=== PATIENT | female | born 1970 | race Caucasian/White ===

== ENCOUNTER 2017-02-22 09:36 | Emergency (ER) | payer OTHER ==
[~2017-02-22] VITALS: Ht 162.6 cm; Wt 82.7 kg
[~2017-02-22 09:36] MED LIST: ACYC400T2 PO; IBUP-1827 PO; LISI10TA PO
[2017-02-22 09:42] VITALS: BP 177/93; PULSE 89; RESP 22; O2SAT 100
--- NOTE | 2017-02-22 09:56 | ED.REPORT ---
HPI-Abd Pain F 40 and Over Date of Service Feb 22, 2017 ED Provider: Amlicar Hutchinson DO The pt is a 46 y/o female presenting to the ED complaining of abdominal pain onset 1700 yesterday. She describes the pain as getting progressively worse, beginning at her RLQ and radiating to her back, and becoming worse when she breathes. Denies fever, vomiting, diarrhea, hematuria, increased frequency, blood in stool, or vaginal discharge. Nursing Notes Stated Complaint: RIGHT SIDE PAIN Chief Complaint: Female Abdominal Pain Nursing Notes Reviewed: Yes Allergies: Coded Allergies: codeine (Verified Adverse Reaction, Severe, N/V, 05/29/09) Uncoded Allergies: Codeine (Adverse Reaction, Severe, N/V, 08/03/04) Scheduled Acyclovir (Acyclovir) 400 Mg Tablet 400 MG PO BID Levofloxacin (Levaquin) 500 Mg Tablet 500 MG PO DAILY Lisinopril (Lisinopril) 10 Mg Tablet 10 MG PO DAILY Metronidazole (Flagyl) 500 Mg Tablet 500 MG PO Q8H Scheduled PRN Docusate Sodium (Colace) 100 Mg Capsule 100 MG PO BID PRN PRN For Constipation Ibuprofen (Ibuprofen) 600 Mg Tablet 600 MG PO QID PRN PRN For Pain Tramadol (Tramadol) 50 Mg Tablet 50 MG PO Q4H PRN PRN For Pain General Time Seen by MD: 09:55 Chief Complaint Abdominal pain Hx Obtained From: Patient Arrived By: Walk-in Sudden in Onset?: Yes Onset Occurred: Yesterday Symptom Duration: Since onset Progression since Onset: Gradually worsening Recent Healthcare: No recent doctor visit, No recent hospitalization Similar Sx Previous: Yes Past Medical History Past Medical History None reported Past Surgical History Tubal ligation Ovarian cysts Social History Alcohol Use: "Social" Other Social History: Good social support Ambulatory Status Independent Review of Systems Constitutional: Denies: Fever GI: Reports: Abdominal pain, Denies: Bloody/tarry stool, Diarrhea, Vomiting Female: Denies: Hematuria, Urinary frequency, Vaginal discharge Complete sys rev & neg: except as marked. Physical Exam Vital Signs Vital Signs (First) Date Time Temp Pulse Resp B/P Pulse Ox O2 Delivery O2 Flow Rate FiO2 02/22/17 09:42 36.8 89 22 177/93 100 Room Air Initial VS: Reviewed Head / Eyes: Atraumatic, Normocephalic, PERRL ENT: Mucous membranes moist, Conjunctiva normal, No scleral icterus Neck: Supple, Non-tender, Full range of motion Extremities: Vascular intact, Neuro intact, No swelling, No tenderness Skin: Warm, Dry, No cyanosis Neurologic: Alert, Oriented, Nonfocal Psychiatric: Mood/affect normal, Behavior normal, Normal thought content General/Constitutional: Awake, Alert Respiratory / Chest: Atraumatic, Breath sounds NL, Breath sounds = bilat, No respiratory distress Cardiovascular: Heart rate NL, Regular rhythm, Heart sounds NL Abdomen: Soft RLQ pain w/ positive McBurneys sign Back: Atraumatic, Full range of motion Interpretation & Diagnostics Lab Results Interpretation Result Diagram: 02/22/17 1025 02/22/17 1025 Test 02/22/17 10:00 02/22/17 10:25 Hold Urine Received (Received) White Blood Count 8.6th/mm3 (3.8-10.1) Red Blood Count 4.75mil/mm3 (3.90-5.20) Hemoglobin 14.3g/dL (12.0-15.6) Hematocrit 42.3% (35.0-46.0) Mean Corpuscular Volume 89.1fL (81-100) Mean Corpuscular Hemoglobin 30.1pg (27.0-35.0) Mean Corpuscular Hemoglobin Concent 33.8% (32.0-37.0) Red Cell Distribution Width 13.6% (12.3-15.4) Platelet Count 212bil/L (150-400) Neutrophils (%) (Auto) 64.8% (40-74) Lymphocytes (%) (Auto) 24.4% (14-46) Monocytes (%) (Auto) 9.0% (4-12) Eosinophils (%) (Auto) 1.5% (0-5) Basophils (%) (Auto) 0.2% (0-3) Sodium Level 139mEq/L (134-144) Potassium Level 4.1mEq/L (3.5-5.2) Chloride Level 106mEq/L (97-108) Carbon Dioxide Level 21mmol/L (18-29) Blood Urea Nitrogen 15mg/dL (6-24) Creatinine 0.59mg/dL (0.57-1.00) Estimat Glomerular Filtration Rate 156mL/min (>59) Glucose Level 91mg/dL (60-99) Calcium Level 8.9mg/dL (8.5-10.1) Magnesium Level 2.2mg/dL (1.6-2.6) Total Bilirubin 0.6mg/dL (0.0-1.2) Aspartate Amino Transf (AST/SGOT) 17U/L (0-50) Alanine Aminotransferase (ALT/SGPT) 17U/L (0-32) Alkaline Phosphatase 62U/L (25-150) Total Protein 7.2g/dL (6.4-8.4) Albumin 4.2g/dL (3.4-5.0) Lipase 26U/L (13-60) Hold Lujan Top Tube Received (Received) CT Abd / Pelvis Interpretation IMPRESSION: 1. Fat stranding within the right hemiabdomen, adjacent to the ascending colon and inferior liver margin. Findings may indicate colitis versus hepatitis. Clinical correlation recommended. No abscess. 2. Appendix not seen. No evidence of appendicitis. 3. New sclerotic focus within the L4 vertebral body which could be further assessed with bone scan, if clinically indicated. 4. Multiple uterine fibroids. Dictated by: Deedee Banuelos M.D. on 02/22/2017 at 11:39 Approved by: Deedee Banuelos M.D. on 02/22/2017 at 11:45 Study type: Abdom CT oral contrast Interpretation / Wet Read by: Interpret - Radiologist Re-Eval/Medical Decision Med Decision/Clinical Course Likely infectious colitis, will plan to treat with antibiotics and pain management. Recommend close outpatient follow-up. Return precautions given. Re-Evaluation/Progress : Time of Eval: 12:26 Patient Status: Condition improved Re-Evaluation/Progress Note: Pt rechecked. Informed pt of plan for treatment. Pt understands and agrees with plan for treatment. F/U instructions and RTER warnings given. All questions addressed. Counseled Regarding: Diagnosis, Lab results, Need for follow-up, When/why to return to ED Discharge & Departure Primary Impression: Colitis Disposition: Home Discharge Condition All VS Reviewed: Yes Condition: Stable Additional Instructions: Thank for you entrusting us with your care today. You were diagnosed with colitis. Please take the antibiotics as prescribed and the Tramadal for the pain as needed. You can call Dr. Blum tomorrow for a follow up. Please return to the emergency department if you experience any new or worsening symptoms. I hope you feel better soon. Referrals: Jensen Blum MD (PCP) Scribe Attestation Portions of this note were transcribed by Leandro Torres. I, Dr. Hutchinson personally performed the history, physical exam and medical decision-making; I reviewed and confirmed the accuracy of the information in the transcribed note. Signed by : Liz Mckeon, 02/22/17 and 1258. copies to: Jensen Blum MD, Timothy S DO Feb 22, 2017 09:56 Leandro Torres Feb 22, 2017 12:30
[2017-02-22] MEDS ORDERED: 0.9% Sodium Chloride 1,000 ML IV ONE (10:09)
[2017-02-22] MEDS ORDERED: Ondansetron 2 mg/mL 2 mL Inj IVPUSH PRN (10:10)
[2017-02-22] MEDS ORDERED: Ketorolac 15 mg/mL Inj IVPUSH ONE (10:10)
[2017-02-22 10:37] LABS: BASOPHILS % (AUTO) 0.2 % (0-3); EOSINOPHILS % (AUTO) 1.5 % (0-5); Mean Corpuscular Hemoglobin 30.1 pg (27.0-35.0); Mean Corpuscular Volume 89.1 fL (81-100); NEUTROPHILS % (AUTO) 64.8 % (40-74); Platelet Count 212 bil/L (150-400)
[2017-02-22 11:05] LABS: Magnesium 2.2 mg/dL (1.6-2.6)
[2017-02-22 11:45] VITALS: BP 141/74; PULSE 65; RESP 20; O2SAT 96
--- NOTE | 2017-02-22 11:46 | DRSVH ---
PROCEDURE: CT ABDOMEN AND PELVIS WITH CONTRAST ([id number]) INDICATIONS: rlq pain TECHNIQUE: After the administration of intravenous contrast, 5 mm thick sections acquired from the diaphragm to the symphysis. 5 mm coronal and sagittal reformats were acquired. For radiation dose reduction, the following was used: automated exposure control, adjustment of mA and/or kV according to patient siz e. COMPARISON: [facility], CT, ABD/PELVIS W/CON (PNL), 10/25/2007, 17:15. [facility] , CT, ABDOMEN W&W/O CONTRAST, 01/11/2010, 14:15. FINDINGS: Image quality: Excellent. ABDOMEN: Lung bases: Lung bases are clear. Heart size is normal. Solid organs: Liver and spleen are normal in size and enhancement. Gallbladder is within normal guzmán its. Biliary system is non dilated. Pancreas enhances normally. No adrenal nodules. Kidneys demon strate normal size and enhancement, without hydronephrosis. Peritoneum and bowel: Bowel loops demonstrate normal wall thickness and caliber. No free fluid or a ir. There is new fat stranding within the subhepatic location and adjacent to the distal ascending c olon. Appendix not seen. No evidence of appendicitis. Nodes and vessels: No retroperitoneal or mesenteric adenopathy by size criteria. Aorta and inferior vena cava are normal in size. Miscellaneous: No ventral hernias. PELVIS: Genitourinary: Bladder wall thickness is normal. 56 mm diameter exophytic mass protrudes laterally from the right aspect of the uterus. Multiple smaller regions of nodular enhancement within the uteri ne parenchyma are present. Miscellaneous: No inguinal hernias or adenopathy. Bones: There is a 23 mm no sclerosis within the inferior L4 vertebral body, new since the prior exami nation. No vertebral body compression fractures. IMPRESSION: 1. Fat stranding within the right hemiabdomen, adjacent to the ascending colon and inferior liver mar gin. Findings may indicate colitis versus hepatitis. Clinical correlation recommended. No abscess. 2. Appendix not seen. No evidence of appendicitis. 3. New sclerotic focus within the L4 vertebral body which could be further assessed with bone scan, i f clinically indicated. 4. Multiple uterine fibroids. Dictated by: Deedee Banuelos M.D. on 02/22/2017 at 11:39 Approved by: Deedee Banuelos M.D. on 02/22/2017 at 11:45
[2017-02-22] MEDS ORDERED: TRAM50TA2 PO ×2 (12:48→13:27)
[2017-02-22] MEDS ORDERED: DOCU-41 PO ×2 (12:48→13:27)
[2017-02-22] MEDS ORDERED: METR500T PO ×2 (12:48→13:27)
[2017-02-22] MEDS ORDERED: LEVO500T16 PO ×2 (12:48→13:27)
[2017-02-22 13:04] VITALS: BP 120/69; PULSE 69; RESP 20; O2SAT 100
== END 2017-02-22 10:30 | disposition home or self-care (01) ==
LOC: SED 09:36
DX: K52.9 Noninfective gastroenteritis and colitis, unspecified (principal); Z79.899 Other long term (current) drug therapy; Z88.5 Allergy status to narcotic agent
CPT/HCPCS: 36415; 74177; 80053; 81025; 83690; 83735; 85025; 96361; 96374; 96375; 99285; J1885; J2270; J2405; J7030; Q9967

== ENCOUNTER 2017-02-23 14:39 | Emergency (ER) | payer OTHER ==
[~2017-02-23] VITALS: Ht 162.6 cm; Wt 82.7 kg
[~2017-02-23 14:39] MED LIST changes: +DOCU-41 PO; +LEVO500T16 PO; +METR500T PO; +TRAM50TA2 PO
[2017-02-23 14:42] VITALS: BP 133/85; PULSE 78; RESP 20; O2SAT 99
[2017-02-23 15:23] LABS: BASOPHILS % (AUTO) 0.1 % (0-3); EOSINOPHILS % (AUTO) 0.7 % (0-5); MONOCYTES % (AUTO) 6.8 % (4-12); Mean Corpuscular Hemoglobin 30.3 pg (27.0-35.0); Mean Corpuscular Volume 89.4 fL (81-100); NEUTROPHILS % (AUTO) 72.3 % (40-74); Platelet Count 223 bil/L (150-400)
--- NOTE | 2017-02-23 17:17 | ED.REPORT ---
HPI-Abd Pain F 40 and Over Date of Service Feb 23, 2017 ED Provider: Chon Zafar DO Pt is a 46 y/o w/ a hx of IBS presenting to the ED c/o right-mid abdominal pain and vomiting onset 2 days ago after eating some bad shrimp the day before. She was seen in the ED yesterday with the same symptoms and had labs which were normal and an abdominal CT scan showed colitis. She has no history of Crohn's disease, inflammatory bowel disease, or ulcerative colitis. She does have a history of irritable bowel disease with constipation. She c/o associated subjective fever, malaise. She denies diarrhea, hematemesis, bloody stools. She has a family history of colon cancer in her mother and sister. Nursing Notes Stated Complaint: PAIN IN COLON Chief Complaint: Female Abdominal Pain Nursing Notes Reviewed: Yes Allergies: Coded Allergies: codeine (Verified Adverse Reaction, Severe, N/V, 05/29/09) Uncoded Allergies: Codeine (Adverse Reaction, Severe, N/V, 08/03/04) Scheduled Acyclovir (Acyclovir) 400 Mg Tablet 400 MG PO BID Levofloxacin (Levaquin) 500 Mg Tablet 500 MG PO DAILY Lisinopril (Lisinopril) 10 Mg Tablet 10 MG PO DAILY Metronidazole (Flagyl) 500 Mg Tablet 500 MG PO Q8H Scheduled PRN Docusate Sodium (Colace) 100 Mg Capsule 100 MG PO BID PRN PRN For Constipation Ibuprofen (Ibuprofen) 600 Mg Tablet 600 MG PO QID PRN PRN For Pain Tramadol (Tramadol) 50 Mg Tablet 50 MG PO Q4H PRN PRN For Pain General Time Seen by MD: 17:17 Chief Complaint Abdominal pain Hx Obtained From: Patient Arrived By: Walk-in Sudden in Onset?: No Onset Occurred: 2 days ago Symptom Duration: Since onset Progression since Onset: Constant Location: : RLQ: RUQ Quality: Painful Severity: Current: Moderate Severity: Maximum: Moderate Past Medical History Past Medical History IBS with constipation Past Surgical History Tubal ligation Ovarian cysts Social History Alcohol Use: "Social" Other Social History: Good social support Ambulatory Status Independent Review of Systems Constitutional: Reports: Fever, Malaise Respiratory: Denies: Non-productive cough, Shortness of breath Cardiovascular: Denies: Chest pain, Dyspnea on exertion GI: Reports: Abdominal pain, Nausea, Vomiting, Denies: Bloody/tarry stool, Diarrhea, Hematemesis Complete sys rev & neg: except as marked. Physical Exam Vital Signs Vital Signs (First) Date Time Temp Pulse Resp B/P Pulse Ox O2 Delivery O2 Flow Rate FiO2 02/23/17 14:42 36.9 78 20 133/85 99 Room Air Initial VS: Reviewed, Vital signs normal Head / Eyes: Atraumatic, Normocephalic, PERRL ENT: Mucous membranes moist, Conjunctiva normal, No scleral icterus Neck: Supple, Full range of motion Extremities: Vascular intact, Neuro intact, No swelling Skin: Warm, Dry, No cyanosis Neurologic: Alert, Oriented, Nonfocal Psychiatric: Mood/affect normal, Behavior normal, Normal thought content General/Constitutional: Awake, Alert, No acute distress, Cooperative, Not toxic appearing Appearance / Presentation: Positive: Ill appearing/not toxic Respiratory / Chest: Breath sounds NL, Breath sounds = bilat, No respiratory distress, No rales, No rhonchi, No wheezing Cardiovascular: Heart rate NL, Regular rhythm, Heart sounds NL, No gallop, No murmurs, No rubs Abdomen: Atraumatic, Soft, No guarding, No rebound, No distention, No palpable mass Tenderness/Guarding/Rebound: Positive: Tender diffuse (mild) Back: Full range of motion, Painless range of motion Interpretation & Diagnostics Lab Results Interpretation Result Diagram: 02/23/17 1510 02/23/17 1510 Test 02/23/17 15:10 White Blood Count 9.6th/mm3 (3.8-10.1) Red Blood Count 4.62mil/mm3 (3.90-5.20) Hemoglobin 14.0g/dL (12.0-15.6) Hematocrit 41.3% (35.0-46.0) Mean Corpuscular Volume 89.4fL (81-100) Mean Corpuscular Hemoglobin 30.3pg (27.0-35.0) Mean Corpuscular Hemoglobin Concent 33.9% (32.0-37.0) Red Cell Distribution Width 13.4% (12.3-15.4) Platelet Count 223bil/L (150-400) Neutrophils (%) (Auto) 72.3% (40-74) Lymphocytes (%) (Auto) 19.9% (14-46) Monocytes (%) (Auto) 6.8% (4-12) Eosinophils (%) (Auto) 0.7% (0-5) Basophils (%) (Auto) 0.1% (0-3) Sodium Level 134mEq/L (134-144) Potassium Level 4.2mEq/L (3.5-5.2) Chloride Level 99mEq/L (97-108) Carbon Dioxide Level 19mmol/L (18-29) Blood Urea Nitrogen 12mg/dL (6-24) Creatinine 0.67mg/dL (0.57-1.00) Estimat Glomerular Filtration Rate 135mL/min (>59) Glucose Level 91mg/dL (60-99) Calcium Level 9.2mg/dL (8.5-10.1) Magnesium Level 2.0mg/dL (1.6-2.6) Total Bilirubin 0.4mg/dL (0.0-1.2) Aspartate Amino Transf (AST/SGOT) 16U/L (0-50) Alanine Aminotransferase (ALT/SGPT) 14U/L (0-32) Alkaline Phosphatase 59U/L (25-150) Total Protein 7.4g/dL (6.4-8.4) Albumin 4.1g/dL (3.4-5.0) Lipase 23U/L (13-60) Hold Lujan Top Tube Received (Received) Re-Eval/Medical Decision Med Decision/Clinical Course Much better with fluids and analgesia. Laboratory work remains reassuring. No further diarrhea. No further abdominal pain or tenderness. She thinks that the symptoms were predated by shrimp. She is currently on an antibiotic for possible foodborne illness. Including Flagyl. I will provide some [place] for pain and have close outpatient follow-up. Due to fact that she looks good with a normal white count I would not repeat her scan from yesterday. Re-Evaluation/Progress : Time of Eval: 18:35 Patient Status: Condition improved Re-Evaluation/Progress Note: Rechecked pt. Discussed lab results, diagnosis and plan to discharge. Pt understands and agrees with the plan. F/U instructions and RTER warning given. All questions addressed. Counseled Regarding: Diagnosis, Lab results, Need for follow-up, When/why to return to ED Discharge & Departure Primary Impression: Colitis Disposition: Home Discharge Condition All VS Reviewed: Yes Condition: Stable Patient Instructions: Acute Abdominal Pain (ED), Colitis (ED) Additional Instructions: The laboratory work was normal and reassuring. I suspect the pain may be related to the shrimp that you ingested. Either way the diagnostics are reassuring. I do recommend that you be seen by a golf ball molder and have colonoscopy though. With your family history of colon cancer, I think this is very important. For the next couple of days clear liquid diet that can be gradually increased. Take 1-2 [place] every 6 hours as needed for pain. Take Zofran 1 every hours as needed for nausea and vomiting. Call the referral golf ball molder and your primary care tomorrow morning to set up follow-up. Do not drive tonight. Do not drive or drink alcohol or consume acetaminophen while taking the [place]. If you develop any new or worsening pain or any bloody stools or if the diarrhea returns, come back to the emergency department. It was very nice meeting you. Referrals: Jensen Blum MD (PCP) Maycol Martines MD Attestation Portions of this note were transcribed by Jason Maldonado. I, Dr. Zafar personally performed the history, physical exam and medical decision-making; I reviewed and confirmed the accuracy of the information in the transcribed note. Signed by Liz Dickinson, 02/23/17 - 1800 copies to: Jensen Blum MD, Todd P DO Feb 23, 2017 17:17 JASON MALDONADO Feb 23, 2017 17:39 Jose Luis Benoit Feb 23, 2017 19:43
[2017-02-23] MEDS ORDERED: 0.9% Sodium Chloride 1,000 ML IV ONE ×2 (17:30→17:40)
[2017-02-23] MEDS ORDERED: HYDROmorphone 0.5 mg/0.5 mL iSecure Syringe IVPUSH PRN (17:30)
[2017-02-23] MEDS ORDERED: Ondansetron 2 mg/mL 2 mL Inj IVPUSH PRN (17:30)
[2017-02-23] MEDS ORDERED: HYDROcodone-APAP 5-325 mg Tablet PO ONE (18:35)
[2017-02-23] MEDS ORDERED: _Ondansetron ODT 4 mg Tablet PO PRN (19:45)
[2017-02-23] MEDS ORDERED: _HYDROcodone/APAP 5-325 mg Tablet PO PRN (19:45)
[2017-02-23 20:37] VITALS: BP 124/74; PULSE 73; RESP 16; O2SAT 98
== END 2017-02-23 20:22 | disposition home or self-care (01) ==
LOC: SED 14:39
DX: K52.9 Noninfective gastroenteritis and colitis, unspecified (principal); Z88.5 Allergy status to narcotic agent
CPT/HCPCS: 36415; 80053; 83690; 83735; 85025; 96361; 96374; 96375; 99284; J1170; J2405; J7030

== ENCOUNTER 2017-03-05 15:05 | Day surgery (SDC) | payer OTHER ==
[~2017-03-05] VITALS: Ht 160 cm; Wt 80.7 kg
[2017-03-05] MEDS ORDERED: Sodium Chloride LOK Flush 10 mL Syringe IV PRN (15:15)
[2017-03-05] MEDS ORDERED: fentaNYL-PF 50 mCg/mL 2 mL Inj IVPUSH PRN (15:15)
[2017-03-05] MEDS ORDERED: 0.9% Sodium Chloride 1,000 ML IV PRN (15:15)
[2017-03-05 15:27] VITALS: BP 127/81; PULSE 69; RESP 16; O2SAT 99
[2017-03-05 16:24] VITALS: BP 130/73; PULSE 66; RESP 16; O2SAT 99
[2017-03-05 16:34] VITALS: BP 116/75; PULSE 66; RESP 16; O2SAT 100
[2017-03-05 16:44] VITALS: BP 113/69; PULSE 82; RESP 16; O2SAT 99
--- NOTE | 2017-03-05 18:43 | ENDO ---
[address] [address] ENDOSCOPY PROCEDURE PATIENT: BUNNY MARTIN : 1970 MR#: [id number] ADMIT: 03/05/2017 JOB ID: [id number] DATE OF SERVICE: 03/05/2017 PROCEDURE: Colonoscopy. INDICATION: Right lower quadrant pain and abnormal CT scan recently that suggested the possibility of colitis in the right colon. The patient's ASA classification is two. Mallampati score is two. MEDICATIONS: Versed at 5 mg, fentanyl 100 mcg. INSTRUMENT USED: [id number]-180Al PREPARATION QUALITY: Good. PROCEDURE DETAILS: After informed consent was obtained, the patient was brought to the GI suite, where she was placed on oxygen via nasal cannula and monitored with continuous pulse oximeter, telemetry, and blood pressure monitoring. A time-out was performed. Then, she was placed in left lateral decubitus position. Medications were administered for sedation. Digital rectal exam was performed which was unremarkable. The colonoscope was then inserted into the rectum and advanced under direct visualization to the terminal ileum which was identified by the presence of the ileocecal valve and villous-appearing mucosa of the terminal ileum. Once the terminal ileum was reached, the colonoscope was withdrawn back into the rectum. The mucosa and lumen were examined. In the rectum, retroflexion was performed. Following retroflexion, remaining air in the rectum was suctioned and procedure was completed. FINDINGS: A few scattered diverticula were seen in the ascending colon. Otherwise normal exam from rectum to terminal ileum. IMPRESSION: Normal colonoscopy. RECOMMENDATIONS: Referral to General Surgery for further evaluation for right lower quadrant pain and abnormal CT imaging. COMPLICATIONS: None. ESTIMATED BLOOD LOSS: Less than zero.
== END 2017-03-05 23:59 | disposition home or self-care (01) ==
LOC: END 15:05
PROVIDERS: ATTEND Internal Medicine Gastroenterology
DX: R10.31 Right lower quadrant pain (principal); R93.3 Abnormal findings on diagnostic imaging of other parts of digestive tract; K57.30 Diverticulosis of large intestine without perforation or abscess without bleeding; Z80.0 Family history of malignant neoplasm of digestive organs